=== PATIENT | female | born 1945 | race Caucasian/White ===

== ENCOUNTER 2018-04-15 20:32 | Emergency (ER) | payer SELFPAY ==
[~2018-04-15] VITALS: Ht 172.7 cm; Wt 73.0 kg
[2018-04-15] MEDS ORDERED: ONDANSETRON HCL 4MG/2ML VIAL IV STA (23:11)
[2018-04-15] MEDS ORDERED: SODIUM CHLORIDE 0.9% 1,000 ML IV ONE (23:11)
[2018-04-15] MEDS ORDERED: LEVOFLOXACIN 750MG PREMIX 150 ML IV ONE (23:15)
[2018-04-15 23:45] LABS: BG CARBOXYHEMOGLOBIN 0.3 % (0.5-1.5); BG DEOXYHEMOGLOBIN 4.4 % (0.0-5.0); BG FRACTION INSPIRED OXYGEN 21; BG HCO3 ACT 23.3 mmol/L (22.0-26.0); BG METHEMOGLOBIN 0.2 % (0.0-1.5); BG OXYGEN SATURATION 95.6 % (92.0-98.5); BG OXYHEMOGLOBIN 95.1 % (94.0-97.0); BG PCO2 37.7 mmHg (35.0-45.0); BG PH 7.409 (7.350-7.450); BG SAMPLE SITE RIGHT RADIAL; BG TOTAL HEMOGLOBIN 14.2 g/dL (12.0-18.0); BG VENT MODE ROOM AIR
[2018-04-15 23:57] LABS: BASOPHILS % 0.9 % (0.0-2.0); EOSINOPHILS % 2.3 % (0.0-5.0); HEMATOCRIT. 41.6 % (36.0-48.0); LYMPHOCYTES % 22.1 % (20.0-50.0); MEAN CORPUSCULAR HEMOGLOBIN 29.9 pg (28.0-32.0); MEAN CORPUSCULAR VOLUME 88.7 fL (81.0-99.0); MONOCYTES % 11.8 % (2.0-8.0); NEUTROPHILS % 62.9 % (40.0-76.0); PLATELET 227 x1000/uL (130-400); RED BLOOD CELL COUNT 4.69 mill/uL (4.2-5.4); RED CELL DISTRIBUTION WIDTH 13.6 % (11.6-14.6)
[2018-04-16 00:12] LABS: CHLORIDE 109 mEq/L (98-107)
[2018-04-16 00:22] LABS: CLARITY URINE CLEAR (CLEAR); COLOR URINE YELLOW (YELLOW); KETONES URINE NEGATIVE (NEGATIVE); LEUKOCYTE ESTERASE URINE NEGATIVE (NEGATIVE); NITRITE URINE NEGATIVE (NEGATIVE); OCCULT BLOOD URINE 1+ (NEGATIVE); PH URINE 6.5 (4.5-8.0); PROTEIN URINE NEGATIVE (NEGATIVE); SPECIFIC GRAVITY URINE 1.006 (1.005-1.030); UROBILINOGEN URINE 0.2 E.U./dL (0.2-1.0)
[2018-04-16 02:00] VITALS: BP 145/80
== END 2018-04-16 02:15 | disposition home or self-care (01) ==
LOC: ER 21:21
DX: J06.9 Acute upper respiratory infection, unspecified (principal); I10 Essential (primary) hypertension
CPT/HCPCS: 36415; 36600; 71045; 80053; 81003; 82375; 82805; 83605; 85025; 87040; 87804; 93005; 96365; 96366; 96375; 99285; J1956; J2405; J7030; Z7610

== ENCOUNTER 2021-07-04 16:15 | Emergency (ER) | payer MEDICAID ==
[~2021-07-04] VITALS: Ht 160 cm; Wt 66.0 kg
[2021-07-04 16:21] VITALS: BP 126/51
== END 2021-07-04 18:59 | disposition left against medical advice (07) ==
LOC: ER 16:15
DX: Z53.21 Procedure and treatment not carried out due to patient leaving prior to being seen by health care provider (principal); I10 Essential (primary) hypertension